=== PATIENT | female | born 1995 | race Two or more races ===

== ENCOUNTER 2021-07-17 20:08 | Emergency (ER) | payer MEDICAID ==
[~2021-07-17] VITALS: Ht 154.9 cm; Wt 76.2 kg
[2021-07-17 20:25] VITALS: BP 110/69
== END 2021-07-18 03:12 | disposition home or self-care (01) ==
LOC: ER 20:12
DX: O26.891 Other specified pregnancy related conditions, first trimester (principal); H60.93 Unspecified otitis externa, bilateral; H61.23 Impacted cerumen, bilateral; J03.90 Acute tonsillitis, unspecified; Z3A.13 13 weeks gestation of pregnancy